=== PATIENT | female | born 1935 | race Caucasian/White ===

== ENCOUNTER 2022-05-30 08:57 | Observation (INO) | payer OTHER ==
[2022-05-30 09:47] VITALS: TEMP 98.9; BMI 26.3
[2022-05-30] MEDS ORDERED: LACTATED RINGERS SOLUTION 1000 ML INFUS.BAG IV ONE (09:58)
[2022-05-30 10:30] LABS: VENOUS BASE EXCESS 2.4 mmol/L (-2-2); VENOUS O2 SATURATION 95.5 % (70-80); VENOUS PCO2 35.2 mmHg (38-52); VENOUS PH 7.484 (7.310-7.410)
[2022-05-30 10:32] LABS: BASO % 0.3 % (0-2.0); EOS % 0.2 % (0-4.5); HEMATOCRIT 25.4 % (32.4-45.2); LYMPH % 6.8 % (8-40); MCH 22.5 pg (25.7-33.7); MCHC 31.7 g/dl (32.0-36.0); MEAN PLT VOLUME 6.8 fl (7.5-11.1); NEUT % 85.7 % (42.8-82.8); PLATELET COUNT 235 10^3/uL (134-434); RBC 3.57 M/mm3 (3.60-5.2); RDW 18.4 % (11.6-15.6)
[2022-05-30 10:46] LABS: INR 1.06 (0.83-1.09); PROTHROMBIN TIME (PATIENT) 12.2 SEC (9.7-13.0)
[2022-05-30 10:49] LABS: ACTIVATED PTT 23.7 SECONDS (25.2-36.5)
[2022-05-30 10:52] LABS: CALCIUM 8.6 mg/dL (8.5-10.1)
[2022-05-30 10:53] LABS: BLOOD UREA NITROGEN 15.4 mg/dL (7-18)
[2022-05-30 10:56] LABS: BILIRUBIN,DIRECT 0.1 mg/dL (0.0-0.2); CREATININE 0.6 mg/dL (0.55-1.3)
[2022-05-30 10:58] LABS: BILIRUBIN,TOTAL 0.5 mg/dL (0.2-1); TOT PROT 6.3 g/dl (6.4-8.2)
[2022-05-30 12:04] LABS: EPI CELLS 2 /uL (0-25.1); HYALINE CASTS 0 /uL (0-3.1); URINE APPEARANCE CLEAR; URINE BACTERIA 4 /uL (0-1359); URINE BILIRUBIN NEGATIVE (NEGATIVE); URINE COLOR YELLOW; URINE GLUCOSE (UA) NEGATIVE (NEGATIVE); URINE KETONE NEGATIVE (NEGATIVE); URINE LEUK ESTERASE NEGATIVE (NEGATIVE); URINE NITRITE NEGATIVE (NEGATIVE); URINE PROTEIN NEGATIVE (NEGATIVE); URINE RBC 17 /uL (0-23.9); URINE UROBILINOGEN 0.2 mg/dL (0.2-1.0); URINE WBC 2 /uL (0-25.8)
[2022-05-30] MEDS ORDERED: ACETAMINOPHEN 1000 MG/100 ML BAG IVPB ONE (14:17)
[2022-05-30] MEDS ORDERED: ACETAMINOPHEN INJECTION 100 ML IVPB ONE (14:18)
[2022-05-30 17:52] VITALS: BP 130/57; PULSE 62
[2022-05-30 18:48] LABS: RETICULOCYTES 1.12 % (0.5-1.5)
[2022-05-30] MEDS ORDERED: ATORVASTATIN CA 20 MG TABLET (FP) PO SCH (22:00)
[2022-05-30] MEDS ORDERED: INSULIN SLIDING SCALE (NOVOLOG) 1 VIAL SQ SCH (22:00)
[2022-05-31] MEDS ORDERED: LOSARTAN POTASSIUM 50 MG TABLET PO SCH (10:00)
[2022-05-31] MEDS ORDERED: INDAPAMIDE 1.25 MG PO SCH (10:00)
== END 2022-05-30 18:54 | disposition left against medical advice (07) ==
LOC: JER 08:57 → JERBED 15:56
PROVIDERS: ADMIT Internal Medicine; ATTEND Internal Medicine
PROC: 3E033NZ Introduction of Analgesics, Hypnotics, Sedatives into Peripheral Vein, Percutaneous Approach (ICD-10-PCS; principal; 2022-05-30)
PROC: 3E0337Z Introduction of Electrolytic and Water Balance Substance into Peripheral Vein, Percutaneous Approach (ICD-10-PCS; 2022-05-30)
DX: R55 Syncope and collapse (principal); U07.1 COVID-19; S00.83XA Contusion of other part of head, initial encounter; X58.XXXA Exposure to other specified factors, initial encounter; Y93.89 Activity, other specified; Y92.89 Other specified places as the place of occurrence of the external cause; D64.9 Anemia, unspecified; R11.10 Vomiting, unspecified; M81.0 Age-related osteoporosis without current pathological fracture; M16.10 Unilateral primary osteoarthritis, unspecified hip; M48.00 Spinal stenosis, site unspecified; J02.9 Acute pharyngitis, unspecified; M54.9 Dorsalgia, unspecified
CPT/HCPCS: 36415; 70450-TC; 71045-TC-FY; 72125-TC; 72170-TC-FY; 73502-TC-RT-FY; 80053; 81003; 82248; 82728; 82803; 83540; 83550; 83615; 84484; 85025; 85045; 85610; 85730; 86140; 86850; 86900; 86901; 87086; 93005; 93010; 96361; 96374; 99285-25; C9803-CS; G0378; U0003; U0005